=== PATIENT | female | born 1980 | race Caucasian/White ===

== ENCOUNTER 2016-03-12 05:00 | Inpatient (IN) | payer OTHER ==
[~2016-03-12] VITALS: Ht 160 cm; Wt 128.4 kg
[~2016-03-12 05:00] MED LIST: ACET325T51 PO; FAMO20T PO; Lactated Ringer's 1,000 ML IV SCH; ONDA4TAB6 PO
[2016-03-12] MEDS ORDERED: Sodium Citrate-Citric Acid 15 mL Solution PO SCH (06:00)
[2016-03-12] MEDS ORDERED: Methylergonovine 0.2 mg/mL Inj IM PRN ×2 (06:00→10:10)
[2016-03-12] MEDS ORDERED: Hemorrhage Kit, Post Partum XX ONE ×2 (06:00→10:10)
[2016-03-12] MEDS ORDERED: CeFAZolin Inj 3 GM in IV Premix 1 EACH IV SCH (06:00)
[2016-03-12] MEDS ORDERED: Carboprost 250 mCg/mL Inj IM PRN ×2 (06:00→10:10)
[2016-03-12] MEDS ORDERED: Lactated Ringer's 1,000 ML IV SCH (06:00)
[2016-03-12] MEDS ORDERED: Oxytocin 10 Unit/mL Inj IM PRN ×2 (06:00→10:10)
[2016-03-12] MEDS ORDERED: Lactated Ringer's 1,000 ML IV PRN (07:21)
[2016-03-12] MEDS ORDERED: MetoCLOpramide 5 mg/mL 2 mL Inj IVPUSH PRN (07:25)
[2016-03-12] MEDS ORDERED: Morphine PF 1 mg/mL 10 mL Inj EPIDURAL ONE (07:25)
[2016-03-12] MEDS ORDERED: Dexamethasone 4 mg/mL Inj IVPUSH PRN (07:25)
[2016-03-12] MEDS ORDERED: Ondansetron 2 mg/mL 2 mL Inj IVPUSH PRN (07:25)
[2016-03-12] MEDS ORDERED: EPHEDrine Sulfate 50 mg/mL Inj IVPUSH PRN (07:25)
[2016-03-12] MEDS ORDERED: Atropine 0.4 mg/mL Inj IV PRN (07:25)
[2016-03-12] MEDS ORDERED: Phenylephrine/NS-PF 100 mCg/mL 5 mL Syringe IVPUSH PRN (07:25)
[2016-03-12] MEDS ORDERED: fentaNYL-PF 50 mCg/mL 2 mL Inj IVPUSH PRN (07:25)
--- NOTE | 2016-03-12 07:27 | PCM.HPANE ---
Patient Data Date of Service: Mar 12, 2016 Surgeon Admitting Provider:Parvin Whitmore MD Attending Provider:Parvin Whitmore MD Primary Care Physician:Eladio Other Provider:Umer Arias Anesthesia Reason for Visit repeat section repeat section Ht/WT & BMI Height (Centimeters): 160 Weight (Kilograms): 128 Body Mass Index Allergies Coded Allergies: prochlorperazine (Verified Allergy, Mild, Hives, 12/18/15) Diabetes History Hx Diabetes?: No Medications Hypertension Medication: No Home Meds Incl Beta Cade: No Active Scripts Acetaminophen 325 Mg [id number] Mg PO Q4H PRN For Pain #60 TABLET Ref 0 Prov:Lanie Stratton MD 01/21/16 Ondansetron (Zofran)4 Mg Tablet4 Mg PO Q4H PRN For Nausea #30 TABLET Ref 0 Prov:Lanie Stratton MD 01/21/16 Famotidine (Pepcid)20 Mg [id number] Mg PO BID #60 TABLET Ref 0 Prov:Lanie Stratton MD 01/21/16 History Hx of Heart Problems?: No Cardiovascular History: Denies:: Congestive Heart Failure Hypertension Hx of Respiratory Problem?: Yes Respiratory History: Positive for:: Asthma Denies:: Tuberculosis Hx Neurologic Problems?: No Female Hx: Positive for:: Currently Hx Surgeries?: Yes (, ifeoma) Hx Diabetes: No Hx Alcohol Use: NoHx Substance Use: No Smoking Status: Unknown if Ever Smoker Have You Smoked inLast 12 mo: Yes Stop/Bang Risk Assessment Category Category 1A: Patient has history of documented sleep apnea, and HAS NOT received any narcotic, sedative or anesthesia administration during this stay. Category 1B: Patient has history of documented sleep apnea, and HAS received any narcotic , sedative or anesthesia administration during this stay Category 2: Patient has SUSPECTED Obstructive Sleep Apnea, and HAS received any narcotic , sedative or anesthesia administration during this stay. Category 3: Patient has SUSPECTED Obstructive Sleep Apnea and HAS NOT received narcotic, sedative or anesthesia administration during this stay. Category 4: Outpatient in Procedural Areas with known sleep apnea or who screen positive for High Risk via the STOP/BANG questionnaire. Exam Exam General Appearance: Alert, Oriented X3, Cooperative, No Acute Distress HEENT/AIRWAY: MP 2 Lungs: Normal Air Movement Heart: Exam Unremarkable Meds/Labs/Diagnostics Admission Meds Current Medications Lactated Ringer's (Lr) 1,000 ml @ 120 mls/hr Q8H20M IV Last administered on t 07:19; Start 03/12/16 at 05:00; Stop 03/12/16 at 13:19 Plan Impression Patient chart reviewed, patient interviewed and anesthestic plan with risks, benefits, and alternatives discussed, and informed consent obtained. ASA Physical Status: ASA3 Severe Disease Anesthetic Plan: SAB Bene/Risks/Altern/Consents: Yes HP Complete Prior to Induction: Yes Moe Shelby MD Mar 12, 2016 07:27
[2016-03-12] MEDS ORDERED: CeFAZolin 1 Gm/50 mL D5W IV Premix IV SCH (07:33)
[2016-03-12 07:35] LABS: Mean Corpuscular Hemoglobin 24.9 pg (27.0-35.0); Mean Corpuscular Volume 81.2 fL (81-100)
--- NOTE | 2016-03-12 09:58 | PCM.ANEP1 ---
Post Anesthesia Phase 1 PACU Phase 1 Assessment Date of Service: Mar 12, 2016 Anesthetic Administered: SAB Level of Alertness: Awake, talking [place] CRUZ's with Equal Strength: No Pain: No Nausea or Vomiting: No Oxygen Delivery: Room Air Lungs: Normal Air Movement Moe Shelby MD Mar 12, 2016 09:58
[2016-03-12] MEDS: Lactated Ringer's 1,000 ML IV SCH ×2 (10:08→18:08)
[2016-03-12] MEDS ORDERED: diphenhydrAMINE 50 mg Capsule PO PRN (10:10)
[2016-03-12] MEDS ORDERED: LANOlin HPA 7 Gm Ointment TOPICAL PRN (10:10)
[2016-03-12] MEDS ORDERED: Oxytocin 30 Units/500 mL LR 30 UNITS in IV Premix 1 EACH IV PRN (10:10)
[2016-03-12] MEDS ORDERED: Sodium Chloride LOK Flush 10 mL Syringe IVFLUSH PRN (10:10)
--- NOTE | 2016-03-12 10:33 | OP ---
[address] [address] OPERATIVE REPORT PATIENT: MELINA INGRAM : 1980 MR#: [id number] ADMIT: 03/12/2016 JOB ID: [id number] DATE OF SURGERY: 03/12/2016 PREOPERATIVE DIAGNOSIS(ES): 1. A 39+ week intrauterine here for repeat low-transverse section. 2. Morbid obesity with a body mass index of 50. 3. History of depression as well as depression and anxiety. 4. Asthma. 5. Rh-negative status. 6. History of section x1 due to nonreassuring heart tones. 7. Advanced maternal age with a normal cell free DNA. POSTOPERATIVE DIAGNOSIS(ES): 1. A 39+ week intrauterine here for repeat low-transverse section. 2. Morbid obesity with a body mass index of 50. 3. History of depression as well as depression and anxiety. 4. Asthma. 5. Rh-negative status. 6. History of section x1 due to nonreassuring heart tones. 7. Advanced maternal age with a normal cell free DNA. PROCEDURE PERFORMED: Repeat low-transverse section. SURGEON: Parvin Whitmore MD WEIGHT CALLER: Alber Banks MD who was necessary for retraction purposes and completion of the case given the patient's size and history of previous section. FINDINGS: Live-born female , born on March 12, 2017 at 838 hours weighing 3912 g or 8 pounds 10 ounces with Apgars of 9 at 1 minute and 10 at 5 minutes. COMPLICATIONS: None apparent. ESTIMATED BLOOD LOSS: 700 cc. FLUID REPLACEMENT: 1500 cc of crystalloid. URINE OUTPUT: 100 cc of clear yellow urine. INDICATIONS: This 35-year-old, -0-2-1 female presented at 39 plus 1 week gestational age with an EDC of March 18, 2016 for a planned repeat low transverse section. was complicated by x1 in her first due to nonreassuring heart tones. She declined a vaginal after or trial of labor after . Additionally she also had morbid obesity with an admission BMI of 50, history of depression, asthma controlled on albuterol, Rh negative status receiving RhoGAM in the and advanced maternal age with normal cell free DNA screening. LABORATORY DATA: Showed blood type of O-negative, antibody screen negative, rubella immune. Hep B surface antigen negative, HIV negative, RPR nonreactive. She is also GBS negative. She presented on the morning of to undergo the planned repeat low-transverse section. PROCEDURE: The patient was given 3 g of Ancef preoperatively given her size. She was then taken to the operating room where a spinal with Duramorph was placed. She was then placed in dorsal supine position with a leftward tilt. She was prepped and draped in the usual sterile fashion for delivery. Retractor was placed to elevate her pannus prior to drape placement. Under excellent spinal anesthesia, an incision was made sharply along her previous incision line down to the level of the fascia. There was noted to be some bleeding which was cauterized upon entrance. This incision was carried down to the level of the rectus fascia. The fascia was then incised in the midline and sharp dissection was used to separate the fascia from the underlying rectus muscle. The peritoneum was elevated with a hemostat and entered bluntly and blunt dissection was used to visualize the gravid uterus. Given the size of her pannus and difficulty with visualization a large Dayne O-retractor was then placed. A bladder flap was then created and an incision was made over the lower uterine segment revealing a small amount of clear amniotic fluid. This was then ruptured and the infant's vertex was then brought to the incision and delivered atraumatically. The anterior shoulder delivered easily, followed by the posterior shoulder and remainder of the was then easily delivered. After a 60 second cord clamping delay the cord was then clamped, cut, and the was passed to the nursing team who were in attendance. Cord blood was obtained. Pitocin was then started. The placenta delivered intact spontaneously and was passed off the table. The uterus was then removed from the abdominal cavity covered with a moist sponge and closed in 2 layers of 0-Vicryl. The 1st layer was a locking layer and the 2nd layer was nonlocking. Two tpnohc-sn-ozckn stitches were needed for hemostasis along the lower right side of the incision. Cautery was also used to help achieve hemostasis and FloSeal was then placed on top of this. The pericolic gutters were cleared of clot and debris and the uterus was then replaced into the abdominal cavity where hemostasis was again ensured. The Dayne retractor was then removed from the abdominal cavity and the fascia was closed with 2 unlocked layers of 0-Vicryl starting in each corner and meeting in the middle. Electrocautery was used for hemostasis of the subcutaneous tissue. The subcu was then reapproximated with a running nonlocking stitch of 0-plain gut. The skin was then closed with hugo. The patient tolerated this procedure well. Recovered in her room with her . All sponge, needle, instrument counts were correct at the completion the procedure.
--- NOTE | 2016-03-12 11:43 | PCM.ANEP2 ---
Post Anesthesia Evaluation ASA/CMS Post Anesthesia Date of Service: Mar 12, 2016 VS in Patient's Normal Range?: Yes Resp Stable; Airway Patent?: Yes CV Function & Hydration Stable: Yes Mental Status Recovered?: Yes Pain control Satisfactory?: Yes N/V Control Satisfactory?: Yes Moe Shelby MD Mar 12, 2016 11:43
[2016-03-12] MEDS: Acetaminophen IV 1,000 MG in IV Premix 1 EACH IV PRN ×2 (13:09→19:23)
[2016-03-12] MEDS ORDERED: Ondansetron 2 mg/mL 2 mL Inj ONE (13:43)
[2016-03-12] MEDS ORDERED: Oxytocin 10 Unit/mL Inj ONE (13:43)
[2016-03-12] MEDS ORDERED: Phenylephrine/NS-PF 100 mCg/mL 5 mL Syringe IVPUSH ONE (13:43)
[2016-03-12] MEDS ORDERED: Dexamethasone 4 mg/mL Inj ONE (13:43)
[2016-03-12] MEDS ORDERED: diphenhydrAMINE 25 mg Capsule PO PRN (21:57)
[2016-03-13] MEDS: hydrOXYzine Pamoate 25 mg Capsule PO PRN (00:50)
[2016-03-13] MEDS: Lactated Ringer's 1,000 ML IV SCH ×3 (02:08→18:08)
[2016-03-13] MEDS: oxyCODONE-Acetamin 5-325 mg Tablet PO PRN ×5 (04:10→22:02)
[2016-03-13 07:09] LABS: Mean Corpuscular Hemoglobin 24.9 pg (27.0-35.0); Mean Corpuscular Volume 80.4 fL (81-100)
--- NOTE | 2016-03-13 08:15 | PCM.PNOBPP ---
Subjective Date of Service Mar 13, 2016 Post : Repeat Ceserean Delivery Subjective 35-year-old G4 now P 2 0 2 2 was admitted the morning of 03/12/2016 for scheduled repeat section. She is doing well this morning, she has not yet been up to pee as the Campbell was recently removed. She has been able to get up and is passing gas. She does express some concern about breast feeding as baby prefers one side and she is having some pain at the nipple. She did meet with yesterday. Lochia: Normal Pain Management: PO pain meds Gastrointestinal: Good Appetite, No N/V, Passing Flatus Postop Activity: Ambulating Independently Group B Strep Results: Negative Rubella: Immune Blood Type: O RH Type: Negative Labs Laboratory Tests 03/13/16 06:58: White Blood Count 9.4, Red Blood Count 3.57, Hemoglobin 8.9, Hematocrit 28.7, Mean Corpuscular Volume 80.4, Mean Corpuscular Hemoglobin 24.9, Mean Corpuscular Hemoglobin Concent 31.0, Red Cell Distribution Width 15.1, Platelet Count 221 Exam Vital Signs Vital Signs: VS reviewed, stable Exam Abdomen: Fundus firm Extremities: Normal pulses, Edema 1+ Lungs: Clear to Auscultation, Normal Air Movement Heart: Regular Rate/Rhythm, No Murmurs/Rubs/Gallops General: Alert, Oriented X3 Surgical Wound : Incision General Appearence: No Erythemia, No Discharge, Wound under dressing Dressing & Drainage Status: Dry & Intact OB Post Assessment/Plan Assessment 35-year-old G4 now P 2 0 2 2 was admitted the morning of 03/12/2016 for scheduled repeat section. Concern for depression as patient has a history and seems frustrated that breast-feeding was going better this morning. Otherwise doing well postoperatively. Problems: (1) Status post repeat low transverse section Plan: Continue postoperative care. Status: Acute ICD Code: Z98.89 (2) History of depression Plan: Monitor patient for signs of depression, offer supportive care. Restart sertraline if benefit outweighs risk. Status: Acute ICD Code: Z87.59 (3) Rh negative, delivered, current hospitalization Plan: Baby's blood type is A- therefore no RhoGAM was given . Status: Acute ICD Code: O36.0190 Pain Evaluation: Adequate Pain Control VTE Mechanical Devices: Intermittant Pneumatic CD Post plan: Continue routine post care, Discharge home tomorrow GEENA CATHERINE DO Mar 13, 2016 08:15
[2016-03-13] MEDS: Ascorbic Acid 500 mg Tablet PO SCH (08:28)
[2016-03-14] MEDS: Lactated Ringer's 1,000 ML IV SCH ×2 (02:08→10:08)
[2016-03-14] MEDS: oxyCODONE-Acetamin 5-325 mg Tablet PO PRN ×2 (02:40→11:18)
--- NOTE | 2016-03-14 08:24 | PCM.PNOBPP ---
Subjective Date of Service Mar 14, 2016 Post : Repeat Ceserean Delivery Subjective 35-year-old G4 now P2 admitted to the [facility] for repeat section postop day 2 with history of depression. This morning her mood is much improved. She claims she is still having some ups and downs but does not feel like it is necessary to medicate at this time. She continues to work at breast-feeding she has the addition of a nipple shield which seems to be helpful and has been supplementing some which helps keep baby content. She is having some burning pain above her incision site on her left side. She attributes some of the feeding difficulty to being sleepy after taking her pain medication. She wants to try to decrease the frequency and possibly even dose of pain medications today. Otherwise she is meeting postoperative goals. Lochia: Normal Pain Management: PO pain meds Gastrointestinal: Good Appetite, No N/V, Passing Flatus Postop Activity: Ambulating Independently Group B Strep Results: Negative Rubella: Immune Blood Type: O RH Type: Negative Labs Laboratory Tests 03/13/16 06:58: White Blood Count 9.4, Red Blood Count 3.57, Hemoglobin 8.9, Hematocrit 28.7, Mean Corpuscular Volume 80.4, Mean Corpuscular Hemoglobin 24.9, Mean Corpuscular Hemoglobin Concent 31.0, Red Cell Distribution Width 15.1, Platelet Count 221 Exam Vital Signs Vital Signs: VS reviewed, stable Exam Abdomen: Fundus firm, Abdomen soft : Voiding without difficulty Extremities: Normal pulses, Edema 1+ Lungs: Clear to Auscultation, Normal Air Movement Heart: Regular Rate/Rhythm, No Murmurs/Rubs/Gallops General: Alert, Oriented X3 Surgical Wound : Incision General Appearence: [place], Intact, Well Approximated, No Erythemia, No Discharge Dressing & Drainage Status: Dry & Intact (pad in place to absorb moisture and cushion due to weight from pannus over incision.) OB Post Assessment/Plan Assessment 35-year-old G4 now P2 admitted to the [facility] for repeat section postop day 2 with history of depression. Patient doing relatively well today, with great effort put into feeding. Problems: (1) Status post repeat low transverse section Plan: Continue postoperative care. Status: Acute ICD Code: Z98.89 (2) History of depression Plan: Monitor patient for signs of depression, offer supportive care. Restart sertraline if benefit outweighs risk. Status: Acute ICD Code: Z87.59 (3) Rh negative, delivered, current hospitalization Plan: Baby's blood type is A- therefore no RhoGAM was given . Status: Acute ICD Code: O36.0190 Pain Evaluation: Adequate Pain Control VTE Mechanical Devices: Intermittant Pneumatic CD Post plan: Continue routine post care, Anticipate discharge home today Plan: Restart sertraline if needed. Staple removal in clinic one week . Continue support. Attending Statement Doing well today. Meeting all postoperative goals and desires discharge home today. BP mildly elevated, will have her return in one week for staple removal and BP check. Mood is stable. Baby is RH negative and no rhogam is indicated. Incision is clean dry/intact GEENA CATHERINE DO Mar 14, 2016 06:39 Parvin Whitmore MD Mar 14, 2016 15:43
[2016-03-14] MEDS: Ascorbic Acid 500 mg Tablet PO SCH (08:29)
[2016-03-14] MEDS: hydrOXYzine Pamoate 25 mg Capsule PO PRN (08:29)
--- NOTE | 2016-03-14 11:36 | PCM.DIOB ---
Obstetrical Disch Instruction Date of Service: Mar 14, 2016 Dates of Hospitalization Date of Hospital Admission Mar 12, 2016 at 05:00 Providers Admitting Physician: Parvin Whitmore MD Primary Care Physician: Eladio Attending Physician: Parvin Whitmore MD Discharge Diagnosis Discharge Diagnosis Repeat Section Post Operative diagnosis Repeat Section Problems: (1) Status post repeat low transverse section Plan: Continue postoperative care. Status: Acute ICD Code: Z98.89 (2) History of depression Plan: Restart sertraline if benefit outweighs risk. Status: Acute ICD Code: Z87.59 (3) Rh negative, delivered, current hospitalization Plan: Baby's blood type is A- therefore no RhoGAM was given . Status: Acute ICD Code: O36.0190 Diet Discharge Diet: No restrictions Activity Discharge Activity-General: Pelvic Rest for 6 weeks, Balance rest and activity , No lifting >10 pounds for 4-6 weeks Dressing and Incisional Care Dressing Care: Keep dressing clean, dry & intact Hygiene: May shower Additional Instructions Discharge Instructions Please take the iron and vitamin c together for your anemia. Continue to take your Do not take more pain medication (Percocet) than is necessary -- less is better. Percocet pills have Tylenol (acetaminophen) in them at 325mg per pill. Do not take Tylenol in addition to your pain medication but should take one or the other. Both iron and Percocet can give you constipation so you have also been given a prescription for Docusate to keep you regular. Be sure to follow up in 2 weeks and then again in 6 weeks at [facility]. Pelvic rest for 6 weeks (nothing per vagina including intercourse, tampons) If you have a fever greater than 100.4, please call [facility]. There is always someone international bank manager to talk to. If you have an increase in bleeding, call [facility]. If you have a lot of bleeding suddenly, especially if you have symptoms of dizziness & weakness with it, get emergency help. When you see [facility] in two weeks, you will be informed of the results of all the labs. If you start experiencing extreme depression, especially if you feel that you are a danger to yourself or your family, seek emergency help. You have been through a lot -- BE SURE TO TAKE CARE OF YOURSELF. Follow Up Plan Follow Up Plan Staple removal in 1 week in [facility]. 2 week visit. 6 week visit. Follow-up Provider (F9): Parvin Whitmore MD Follow-up appointment: Weeks (1, 2, 6) Call your provider for: Fever or Chills, Shortness of breath, Heavy bleeding, Excessive constipation, Red painful breasts GEEAN CATHERINE DO Mar 14, 2016 11:36
[2016-03-14] MEDS ORDERED: IBUP800T28 PO (11:42)
[2016-03-14] MEDS ORDERED: FERR-74 PO (11:42)
[2016-03-14] MEDS ORDERED: DOCU-41 PO (11:42)
[2016-03-14] MEDS ORDERED: OXYC1TAB24 PO (11:42)
[2016-03-14] MEDS ORDERED: Ascorbic Acid PO (11:42)
[2016-03-14 12:52] VITALS: BP 136/54; PULSE 82; RESP 18
--- NOTE | 2016-03-14 14:11 | PCM.DC.OB ---
Obstetrical Discharge Summary Date of Service Mar 14, 2016 Date of hospital admission Mar 12, 2016 at 05:00 Date of Discharge: Mar 14, 2016 Providers Admitting Physician: Parvin Whitmore MD Primary Care Physician: Nopjackson Attending Physician: Parvin Whitmore MD Diagnosis at Time of Discharge 1. Status post repeat low transverse section Problems: (1) Status post repeat low transverse section Plan: Continue postoperative care, stable removal 1 week Status: Acute ICD Code: Z98.89 (2) History of depression Plan: Monitor at visit. Patient has plan to get help and will restart sertraline if needed Status: Acute ICD Code: Z87.59 (3) Rh negative, delivered, current hospitalization Plan: Baby Rh-, no RhoGAM needed . Status: Acute ICD Code: O36.0190 Invasive procedures Repeat low transverse section Date of Procedure: Mar 12, 2016 Brief History and Physical: 35-year-old G4 now P2 admitted to the [facility] for repeat section. Pertinent history includes depression with previous , morbid obesity with BMI of 50, asthma, Rh- status, history of C- section due to non-reassuring heart tones. She is advanced maternal age with a normal free DNA test. Physical exam on day of discharge: vital signs stable, normal. Well-appearing, heart regular rate and rhythm with no murmurs, lungs clear to auscultation bilaterally with good air movement. Abdomen soft, incision intact with hugo, No drainage, pannus overlies incision. +1 edema in bilateral lower extremities. Normal mood and affect. Hospital Course: 35-year-old G4 now P1 admitted to the [facility] for repeat section. Low-transverse section was performed. Patient appropriately met postoperative goals. She was having some trouble feeding the and continues to occasionally supplement with formula. She had consultation with . With history of depression and frustration with feeding safety plan for mom and baby was discussed including reaching out to patient's mother who lives close and calling the [facility]. Discharged home in stable condition. ([Ascorbic Acid]) 500 MG TABLET 500 MG PO DAILY Take with Iron Prescribed by: GEENA CATHERINE DO Docusate Sodium (Colace) 100 Mg Capsule 100 MG PO DAILY PRN PRN For Constipation Prescribed by: GEENA CATHERINE DO Famotidine (Pepcid) 20 Mg Tablet 20 MG PO BID Prescribed by: RUTHANN ALSTON MD Ferrous Sulfate (Feosol) 325 Mg Tablet 325 MG PO DAILY Take with Vitamin C Prescribed by: GEENA CATHERINE DO Ibuprofen (Ibuprofen) 800 Mg Tablet 800 MG PO Q8H PRN PRN For Pain Prescribed by: GEENA CATHERINE DO oxyCODONE-Acetaminophen 5-325 mg (oxyCODONE-Acetaminophen 5-325 mg) 1 Each Tablet 1-2 TAB PO Q4H PRN PRN For Pain Prescribed by: GEENA CATHERINE DO Discontinued Medications Acetaminophen (Acetaminophen) 325 Mg Tablet 650 MG PO Q4H PRN PRN For Pain Prescribed by: RUTHANN ALSTON MD Ondansetron (Zofran) 4 Mg Tablet 4 MG PO Q4H PRN PRN For Nausea Prescribed by: RUTHANN ALSTON MD Follow-up plan 1 [facility] then 2 week and 6 week visit. Discharge Diet: No restrictions Discharge Activity-General: Pelvic Rest for 6 weeks, Balance rest and activity , No lifting >15 pounds for 2 weeks Patient instructions Please take the iron and vitamin c together for your anemia. Continue to take your Do not take more pain medication (Percocet) than is necessary -- less is better. Percocet pills have Tylenol (acetaminophen) in them at 325mg per pill. Do not take Tylenol in addition to your pain medication but should take one or the other. Both iron and Percocet can give you constipation so you have also been given a prescription for Docusate to keep you regular. Be sure to follow up in 2 weeks and then again in 6 weeks at [facility]. Pelvic rest for 6 weeks (nothing per vagina including intercourse, tampons) If you have a fever greater than 100.4, please call [facility]. There is always someone cotton factor to talk to. If you have an increase in bleeding, call [facility]. If you have a lot of bleeding suddenly, especially if you have symptoms of dizziness & weakness with it, get emergency help. When you see [facility] in two weeks, you will be informed of the results of all the labs. If you start experiencing extreme depression, especially if you feel that you are a danger to yourself or your family, seek emergency help. You have been through a lot -- BE SURE TO TAKE CARE OF YOURSELF. GEENA CATHERINE DO Mar 14, 2016 13:35
== END 2016-03-14 14:15 | disposition home or self-care (01) | DRG 540 ==
LOC: FBC 05:00 → EDSTATUS 07:15
PROVIDERS: ADMIT Obstetrics & Gynecology; ATTEND Obstetrics & Gynecology
PROC: 10D00Z1 Extraction of Products of Conception, Low, Open Approach (ICD-10-PCS; principal; 2016-03-12 07:15)
DX: O34.211 Maternal care for low transverse scar from previous cesarean delivery (principal); Z68.43 Body mass index [BMI] 50.0-59.9, adult; O99.214 Obesity complicating childbirth; E66.01 Morbid (severe) obesity due to excess calories; Z3A.39 39 weeks gestation of pregnancy; Z37.0 Single live birth